=== PATIENT | female | born 1935 | race Caucasian/White ===

== ENCOUNTER 2021-05-27 12:22 | Emergency (ER) | payer MEDICARE ==
[~2021-05-27] VITALS: Ht 165.1 cm; Wt 65.9 kg
[2021-05-27] MEDS ORDERED: GUAIF600 PO (12:32)
[2021-05-27] MEDS ORDERED: TIOT185 IH (12:32)
[2021-05-27] MEDS ORDERED: MONT-35 PO (12:32)
[2021-05-27] MEDS ORDERED: SIMV-260 PO (12:32)
[2021-05-27] MEDS ORDERED: FLUT1DIS6 IH (12:32)
[2021-05-27] MEDS ORDERED: CYCL05OE OU (12:32)
[2021-05-27] MEDS ORDERED: METO25XL PO (12:32)
[2021-05-27] MEDS ORDERED: MECL25TA39 PO (12:32)
[2021-05-27] MEDS ORDERED: A20IH1 NEB (12:32)
[2021-05-27] MEDS ORDERED: CHOL400T56 PO (12:33)
[2021-05-27] MEDS ORDERED: ASPI-1450 PO (12:33)
[2021-05-27] MEDS ORDERED: L.AC1CAP6 PO (12:33)
[2021-05-27] MEDS ORDERED: OMEG1CAP2 PO (12:33)
[2021-05-27 13:46] VITALS: BP 146/73
== END 2021-05-27 15:13 | disposition home or self-care (01) ==
LOC: EMS 12:23
DX: S82.001A Unspecified fracture of right patella, initial encounter for closed fracture (principal); S82.002A Unspecified fracture of left patella, initial encounter for closed fracture; E78.00 Pure hypercholesterolemia, unspecified; I10 Essential (primary) hypertension; Z90.710 Acquired absence of both cervix and uterus; Z79.82 Long term (current) use of aspirin; W19.XXXA Unspecified fall, initial encounter; Y93.89 Activity, other specified; Y92.89 Other specified places as the place of occurrence of the external cause; Y99.8 Other external cause status
CPT/HCPCS: 29505; 99283